=== PATIENT | male | born 1960 | race Caucasian/White ===

== ENCOUNTER → 2017-01-12 | Outpatient (CLI) | payer OTHER ==
--- NOTE | 2017-01-12 19:33 | CT ---
EXAMINATION TYPE: CT chest w con DATE OF EXAM: 01/12/2017 7:10 PM COMPARISON: NONE HISTORY: Mid to left chest pain and shortness of breath x 6-[address] DLP: 207.20 mGycm Automated exposure control for dose reduction was used. CONTRAST: CT scan of the chest is performed with IV Contrast, patient injected with 100 mL of Omnipaque 300. FINDINGS: The lungs are clear of consolidation. There is no pleural effusion. There is mild linear density at t he lung bases. There are no hilar masses. There is no pericardial effusion. There is normal contrast opacification of the pulmonary arteries. I see no filling defect. There is no mediastinal adenopathy. There is no evidence of thoracic aortic aneurysm or dissection. There is a 1.5 cm cyst in the superi or lateral right lobe of the liver. There is no adrenal mass. The bony thorax is intact. IMPRESSION: No active cardiopulmonary disease. Minimal scarring noted at the lung bases.
== END ==
LOC: RADCTMAIN 18:43
PROVIDERS: ATTEND Family Medicine
DX: R07.9 Chest pain, unspecified (principal)
CPT/HCPCS: 71260; Q9967

== ENCOUNTER 2018-06-09 20:40 | Emergency (ER) | payer OTHER ==
--- NOTE | 2018-06-09 21:17 | ED ---
General Adult HPI - General Stated complaint: [facility] Sent/Exposure Time Seen by Provider: 06/09/18 21:16 - History of Present Illness Initial comments: 57-year-old male with past medical history of hypertension who presents to the emergency department today for evaluation of 1 week of generalized malaise, subjective fevers and body aches. Patient reports that this time his is being treated for bacterial meningitis. This was diagnosed by her primary care physician with a physical exam and may be blood work, no lumbar puncture. Patient believes that his is receiving IV penicillin and a couple of pills at home. She was never admitted for this diagnosis. He was told that if he develops any symptoms he should seek evaluation. Patient reports that for the past 5-7 days he's been feeling very fatigued, had some diffuse muscle and joint aches and has been having episodes of heat flashes with sweating. He has not been able to check his temperature home because these episodes last only minutes and then resolved. Patient reports that he is had decreased appetite but has been trying to drink plenty of fluids. He reports a mild headache which resolves when he lays down to sleep. Denies any vision change, hearing change or focal neurologic deficits. Denies any chest pain and reports he's had persistent palpitations and his commonly comments on the fact that his heart feels like it skipping beats. This is unchanged recently. He denies any shortness of breath but does report a nonproductive cough which she attributes to decreasing his cigarette smoking. Patient states that he previously smoked 3 -5 packs of cigarettes per week and is now down to 5 packs of cigarettes per month. He reports he feels like he's been coughing more over the past couple months as he decreases how often he smokes. He denies any productive cough or shortness of breath. Patient denies any abdominal pain, nausea, vomiting or change in bowel or bladder habits. He denies any dysuria, hematuria. He denies any rashes. He does note a bruise on his left elbow but admits that he frequently sits in his bed and props himself up on his left elbow to watch television and the bruises consistent with being in that position. When asked about his rapid heart rate patient states that he has been told he had a rapid heart rate in the past. He has been evaluated and outside hospital states that one point he had a heart rate over 200. He states that he was given a medication that fixed his heart rate with one shot and he never followed up with cardiology. He denies any diagnosis of SVT or A. fib in the past. - Related Data Home Medications Medication Instructions Recorded Confirmed HYDROcodone/APAP 10-325MG [[place] 1 tab PO Q6HR PRN 06/09/18 06/09/18 10-325] Morphine Sulfate ER [Ms Contin] 30 mg PO Q8H 06/09/18 06/09/18 Allergies Allergy/AdvReac Type Severity Reaction Status Date / Time apple Allergy Anaphylaxis Verified 06/09/18 21:18 codeine Allergy Itching Verified 06/09/18 21:18 coconut AdvReac Nausea & Verified 06/09/18 21:18 Vomiting Review of Systems ROS Statement: Those systems with pertinent positive or pertinent negative responses have been documented in the HPI. ROS Other: All systems not noted in ROS Statement are negative. Constitutional: Reports: fever (subjective), chills Eyes: Denies: eye pain, eye discharge, vision change ENT: Denies: ear pain, throat pain, hearing loss Respiratory: Reports: cough. Denies: dyspnea Cardiovascular: Reports: palpitations. Denies: chest pain Endocrine: Reports: fatigue Gastrointestinal: Reports: other (Decreased appetite). Denies: abdominal pain, nausea, vomiting Genitourinary: Denies: urgency, dysuria Musculoskeletal: Reports: back pain Skin: Reports: change in color (Effusion to left elbow). Denies: rash Neurological: Reports: headache, weakness (Generalized). Denies: numbness, paresthesias Psychiatric: Denies: anxiety, depression Hematological/Lymphatic: Denies: easy bleeding, easy bruising General Exam Limitations: no limitations General appearance: alert Head exam: Present: atraumatic, normocephalic Eye exam: Present: PERRL, EOMI ENT exam: Present: normal exam, mucous membranes moist Neck exam: Present: full ROM, other (Noted have a small lesion on the left lateral neck consistent with a bug bite no surrounding cellulitis, no evidence of abscess). Absent: meningismus Respiratory exam: Present: wheezes. Absent: respiratory distress Cardiovascular Exam: Present: tachycardia, irregular rhythm GI/Abdominal exam: Present: soft. Absent: distended Rectal exam: Present: deferred Extremities exam: Present: normal inspection, full ROM, normal capillary refill. Absent: pedal edema Back exam: Present: normal inspection Neurological exam: Present: alert, oriented X3 Psychiatric exam: Present: anxious Skin exam: Present: warm, dry. Absent: rash, petechiae, pallor, mottled Course Vital Signs 06/09/18 06/09/18 06/09/18 21:10 22:20 23:22 Temperature 99.3 F 97.8 F Pulse Rate 112 H 104 H 105 H Respiratory 18 16 18 Rate Blood Pressure 145/81 143/89 160/88 O2 Sat by Pulse 98 96 97 Oximetry 06/10/18 00:55 Temperature 98.2 F Pulse Rate 100 Respiratory 17 Rate Blood Pressure 142/92 O2 Sat by Pulse 98 Oximetry EKG Findings - EKG Comments: EKG Findings:: EKG obtained at 2226, rate is 91, rhythm is sinus, normal axis, normal intervals, no acute ST elevations or depressions. No evidence of acute ischemia or infarction. Medical Decision Making - Medical Decision Making The patient was seen and evaluated, history was obtained from the patient The patient believes that his is being treated for bacterial meningitis at home with potentially IV penicillin and may be some oral antibiotics. We called his who states that she was diagnosed with bacterial meningitis by her primary care doctor who did not perform an LP and ordered home antibiotics. She states she gets antibiotics 1 time daily but doesn't know what she is getting. She was not hospitalized or evaluated in the hospital for this diagnosis. Patient reports he's had one week of generalized fatigue, myalgias and joint pain. In addition he has a long history of palpitations but no known cardiac diagnosis. Patient was noted to be tachycardic on arrival, a full septic and cardiac evaluation was ordered. Patient care was discussed with Dr. Kimbrough who the patient reported was the physician treating his , Dr. Kimbrough is not familiar with this family and is not currently treating his and is not treating any patients for meningitis. Labs with mild leukocytosis no other significant abnormalities. I return to the patient's room to discuss results. Patient states that Dr. Yomaira Jett called his and was upset that we were told that she is being treated for meningitis. He states that it is supposed to be a secret. He states that he was not supposed to give us Dr. Kimbrough's name. At this time i do not believe that his is being treated at home for bacterial meningitis. Considering the durations of the patient's symptoms and his relatively normal workup I have a very low suspicion for meningitis. I did offer the patient a lumbar puncture to evaluate for what could be viral meningitis, however the patient declined stating that feel that is necessary. Patient is afebrile, not tachycardic, my workup as identified no acute infectious source, results were discussed with the patient who expresses relief. All questions pertaining care were answered best my ability the patient was discharged home and advised to follow-up with his primary care physician or return to the ER for any change or worsening. - Lab Data Result diagrams: 06/09/18 22:15 06/09/18 22:15 Lab Results 06/09/18 06/09/18 06/09/18 Range/Units 22:15 22:15 22:15 WBC 5.8 (3.8-10.6) k/uL RBC 4.65 (4.30-5.90) m/uL Hgb 15.1 (13.0-17.5) gm/dL Hct 44.8 (39.0-53.0) % MCV 96.3 (80.0-100.0) fL MCH 32.4 (25.0-35.0) pg MCHC 33.7 (31.0-37.0) g/dL RDW 13.6 (11.5-15.5) % Plt Count 214 (150-450) k/uL Neutrophils % 51 % Lymphocytes % 37 % Monocytes % 6 % Eosinophils % 3 % Basophils % 1 % Neutrophils # 2.9 (1.3-7.7) k/uL Lymphocytes # 2.1 (1.0-4.8) k/uL Monocytes # 0.4 (0-1.0) k/uL Eosinophils # 0.2 (0-0.7) k/uL Basophils # 0.0 (0-0.2) k/uL PT (9.0-12.0) sec INR (<1.2) APTT (22.0-30.0) sec Sodium 139 (137-145) mmol/L Potassium 4.3 (3.5-5.1) mmol/L Chloride 102 (98-107) mmol/L Carbon Dioxide 29 (22-30) mmol/L Anion Gap 8 mmol/L BUN 14 (9-20) mg/dL Creatinine 0.90 (0.66-1.25) mg/dL Est GFR (CKD-EPI)AfAm >90 (>60 ml/min/1.73 sqM) Est GFR (CKD-EPI)NonAf >90 (>60 ml/min/1.73 sqM) Glucose 91 (74-99) mg/dL Plasma Lactic Acid Brenden 1.0 (0.7-2.0) mmol/L Calcium 9.7 (8.4-10.2) mg/dL Magnesium 2.2 (1.6-2.3) mg/dL Total Bilirubin 0.5 (0.2-1.3) mg/dL AST 30 (17-59) U/L ALT 34 (21-72) U/L Alkaline Phosphatase 86 (38-126) U/L Creatine Kinase 55 (55-170) U/L Troponin I (0.000-0.034) ng/mL Total Protein 7.2 (6.3-8.2) g/dL Albumin 4.2 (3.5-5.0) g/dL TSH 0.515 (0.465-4.680) mIU/L Urine Color Urine Appearance (Clear) Urine pH (5.0-8.0) Ur Specific [place] (1.001-1.035) Urine Protein (Negative) Urine Glucose (UA) (Negative) Urine Ketones (Negative) Urine Blood (Negative) Urine Nitrite (Negative) Urine Bilirubin (Negative) Urine Urobilinogen (<2.0) mg/dL Ur Leukocyte Esterase (Negative) 06/09/18 06/09/18 06/09/18 Range/Units 22:15 22:15 23:00 WBC (3.8-10.6) k/uL RBC (4.30-5.90) m/uL Hgb (13.0-17.5) gm/dL Hct (39.0-53.0) % MCV (80.0-100.0) fL MCH (25.0-35.0) pg MCHC (31.0-37.0) g/dL RDW (11.5-15.5) % Plt Count (150-450) k/uL Neutrophils % % Lymphocytes % % Monocytes % % Eosinophils % % Basophils % % Neutrophils # (1.3-7.7) k/uL Lymphocytes # (1.0-4.8) k/uL Monocytes # (0-1.0) k/uL Eosinophils # (0-0.7) k/uL Basophils # (0-0.2) k/uL PT 9.8 (9.0-12.0) sec INR 1.0 (<1.2) APTT 20.9 L (22.0-30.0) sec Sodium (137-145) mmol/L Potassium (3.5-5.1) mmol/L Chloride (98-107) mmol/L Carbon Dioxide (22-30) mmol/L Anion Gap mmol/L BUN (9-20) mg/dL Creatinine (0.66-1.25) mg/dL Est GFR (CKD-EPI)AfAm (>60 ml/min/1.73 sqM) Est GFR (CKD-EPI)NonAf (>60 ml/min/1.73 sqM) Glucose (74-99) mg/dL Plasma Lactic Acid Brenden (0.7-2.0) mmol/L Calcium (8.4-10.2) mg/dL Magnesium (1.6-2.3) mg/dL Total Bilirubin (0.2-1.3) mg/dL AST (17-59) U/L ALT (21-72) U/L Alkaline Phosphatase (38-126) U/L Creatine Kinase (55-170) U/L Troponin I <0.012 (0.000-0.034) ng/mL Total Protein (6.3-8.2) g/dL Albumin (3.5-5.0) g/dL TSH (0.465-4.680) mIU/L Urine Color Yellow Urine Appearance Clear (Clear) Urine pH 5.5 (5.0-8.0) Ur Specific [place] 1.025 (1.001-1.035) Urine Protein Trace H (Negative) Urine Glucose (UA) Negative (Negative) Urine Ketones Negative (Negative) Urine Blood Negative (Negative) Urine Nitrite Negative (Negative) Urine Bilirubin Negative (Negative) Urine Urobilinogen 6.0 (<2.0) mg/dL Ur Leukocyte Esterase Negative (Negative) Disposition Clinical Impression: Fatigue, Myalgia Disposition: HOME SELF-CARE Condition: Good Instructions: Viral Syndrome (ED) Is patient prescribed a controlled substance at d/c from ED?: No Referrals: Oskar Herrera MD [Primary Care Provider] - 1-2 days Time of Disposition: 00:56
[2018-06-09] MEDS: SODIUM CHLORIDE 0.9% 500 ML IV SCH ×3 (22:35→23:30)
[2018-06-09 22:47] LABS: Basophils % (A) 1 %; Eosinophils # (A) 0.2 k/uL (0-0.7); Eosinophils % (A) 3 %; HCT 44.8 % (39.0-53.0); HGB 15.1 gm/dL (13.0-17.5); Lymphocytes # (A) 2.1 k/uL (1.0-4.8); Lymphocytes % (A) 37 %; MCH 32.4 pg (25.0-35.0); MCHC 33.7 g/dL (31.0-37.0); MCV 96.3 fL (80.0-100.0); Mean Platelet Volume 6.7; Monocytes # (A) 0.4 k/uL (0-1.0); Monocytes % (A) 6 %; Neutrophils # (A) 2.9 k/uL (1.3-7.7); Neutrophils % (A) 51 %; Platelet Count 214 k/uL (150-450); RBC 4.65 m/uL (4.30-5.90); RDW 13.6 % (11.5-15.5); WBC 5.8 k/uL (3.8-10.6)
--- NOTE | 2018-06-09 22:53 | XR ---
EXAMINATION TYPE: XR chest 2V DATE OF EXAM: 06/09/2018 COMPARISON: 01/21/2017 HISTORY: Short of breath TECHNIQUE: Frontal and lateral views of the chest are obtained. FINDINGS: Heart and mediastinum are normal. Lungs are clear. Diaphragm is normal. Bony thorax appear s normal. IMPRESSION: Normal chest. No change
[2018-06-09 22:58] LABS: ALT 34 U/L (21-72); AST 30 U/L (17-59); Albumin 4.2 g/dL (3.5-5.0); Alkaline Phosphatase 86 U/L (38-126); Anion Gap 8 mmol/L; Blood Urea Nitrogen 14 mg/dL (9-20); Calcium 9.7 mg/dL (8.4-10.2); Carbon Dioxide 29 mmol/L (22-30); Chloride 102 mmol/L (98-107); Creatine Kinase 55 U/L (55-170); Glucose 91 mg/dL (74-99); Magnesium 2.2 mg/dL (1.6-2.3); Potassium 4.3 mmol/L (3.5-5.1); Sodium 139 mmol/L (137-145); Total Bilirubin 0.5 mg/dL (0.2-1.3); Total Protein 7.2 g/dL (6.3-8.2)
[2018-06-09 23:04] LABS: Prothrombin Time 9.8 sec (9.0-12.0)
[2018-06-09 23:08] LABS: Partial Thromboplastin Time 20.9 sec (22.0-30.0)
[2018-06-09 23:31] LABS: Appearance,Urine Clear (Clear); Bilirubin,Urine Negative (Negative); Blood,Urine Negative (Negative); Color,Urine Yellow; Glucose,Urine (UA) Negative (Negative); Ketones,Urine Negative (Negative); Leukocyte Esterase,Urine Negative (Negative); Nitrite,Urine Negative (Negative); PH, Urine 5.5 (5.0-8.0); Protein,Urine Trace (Negative); Specific Gravity,Urine 1.025 (1.001-1.035)
[2018-06-10] MEDS: SODIUM CHLORIDE 0.9% 500 ML IV SCH
[2018-06-10 00:56] VITALS: BP 142/92; PULSE 100; RESP 17; TEMP 98.2
== END 2018-06-10 01:00 | disposition home or self-care (01) ==
LOC: EC 20:40
DX: S10.96XA Insect bite of unspecified part of neck, initial encounter (principal); R53.83 Other fatigue; M79.1 Myalgia; R50.9 Fever, unspecified; D72.829 Elevated white blood cell count, unspecified; F17.210 Nicotine dependence, cigarettes, uncomplicated; Z79.891 Long term (current) use of opiate analgesic; Z88.5 Allergy status to narcotic agent; Z91.018 Allergy to other foods; W57.XXXA Bitten or stung by nonvenomous insect and other nonvenomous arthropods, initial encounter
CPT/HCPCS: 36415; 71046; 80053; 81003; 82550; 83605; 83735; 84443; 84484; 85025; 85610; 85730; 87040; 87077; 87086; 87186; 93005; 99284

== ENCOUNTER 2018-11-08 14:23 | Emergency (ER) | payer OTHER ==
[2018-11-08 14:27] VITALS: BP 130/77; PULSE 77; RESP 18; TEMP 98.8
--- NOTE | 2018-11-08 14:35 | ED ---
Back Pain HPI - General Chief Complaint: Back Pain/Injury Stated Complaint: back pain Time Seen by Provider: 11/08/18 14:28 Source: patient Limitations: no limitations - History of Present Illness Initial Comments: 57-year-old male presenting today for increasing low back pain 5 days. Patient states that he did have a fall a few weeks ago however he did not notice any increase in low back pain. He states his low back pain increased from his chronic on after he moved a washing machine by himself. He states he did twisting motion and noticed right sided back pain. He states that he does have baseline back pain where he takes MS Contin as well as [place] and is seen by a or speak surgeon at a pain clinic in [facility]. Patient states she was diagnosed with degenerative disc disease as well as bone spurs. Patient states that since moving a dryer he has had increased pain out of his chronic low back pain. Patient denies any fever, chills, history of cancer, history of IV drug use, history of tuberculosis any recent travel, history of loss of bowel or bladder control, urinary retention, decreased sensation or muscle weakness of the lower extremities. Difficult to ambulate in, saddle paresthesias, upper back pain or chest pain, dyspnea or dyspnea on exertion. Patient states he has not had an MRI in over 10 years. He states he was seen at his chiropractor this past Wednesday, who adjusted him but this didnt seemed to help. Negative ROS negative, patient denies any recent chest pain, abdominal pain, nausea or vomiting, numbness or tingling, dysuria or hematuria, constipation or diarrhea, headaches or visual changes, or any other complaints. - Related Data Home Medications Medication Instructions Recorded Confirmed HYDROcodone/APAP 10-325MG [[place] 2 tab PO Q6HR PRN 06/09/18 06/10/18 10-325] Morphine Sulfate ER [Ms Contin] 30 mg PO Q8H 06/09/18 06/10/18 QUEtiapine [SEROquel] 25 - 75 mg PO HS 06/10/18 06/10/18 Venlafaxine HCl [Effexor XR] 75 mg PO BID 06/10/18 06/10/18 Previous Rx's Medication Instructions Recorded Orphenadrine [Norflex] 100 mg PO Q12H 3 Days #6 tablet.er 11/08/18 Allergies Allergy/AdvReac Type Severity Reaction Status Date / Time apple Allergy Anaphylaxis Verified 11/08/18 14:27 codeine Allergy Itching Verified 11/08/18 14:27 coconut AdvReac Nausea & Verified 11/08/18 14:27 Vomiting Review of Systems ROS Statement: Those systems with pertinent positive or pertinent negative responses have been documented in the HPI. ROS Other: All systems not noted in ROS Statement are negative. Past Medical History Past Medical History: Osteoarthritis (OA) Additional Past Medical History / Comment(s): DDD History of Any Multi-Drug Resistant Organisms: None Reported Past Surgical History: Orthopedic Surgery Additional Past Surgical History / Comment(s): RIGHT KNEE LEFT HAND Past Psychological History: No Psychological Hx Reported Smoking Status: Current every day smoker Past Alcohol Use History: None Reported Past Drug Use History: None Reported General Exam - General Exam Comments Initial Comments: General: The patient is awake and alert, in no distress, and does not appear acutely ill. Eye: Pupils are equal, round and reactive to light, extra-ocular movements are intact. No nystagmus. There is normal conjunctiva bilaterally. No signs of icterus. Ears, nose, mouth and throat: There are moist mucous membranes and no oral lesions. Neck: The neck is supple, there is no tenderness or JVD. Cardiovascular: There is a regular rate and rhythm. No murmur, rub or gallop is appreciated. Respiratory: Lungs are clear to auscultation, respirations are non-labored, breath sounds are equal. No wheezes, stridor, rales, or rhonchi. Gastrointestinal: Soft, non-distended, non-tender abdomen without masses or organomegaly noted. There is no rebound or guarding present. No CVA tenderness. Bowel sounds are unremarkable. Musculoskeletal: Normal inspection lumbar spine. Mild midline tenderness to patient lumbar spine, more significant paravertebral tenderness palpation. Patient is able to fully flex extend at the lumbar spine with complaints of pain. Positive straight leg testing right side. Sensation intact of the lower extremities from hip to toes, no saddle anesthesia. +2 or 5 deep tendon reflexes of the patellar and Achilles, no mild closed or fasciculations. No noted atrophy. . DP pulses equal bilaterally 2+. Neurological: A&O x 3. CN II-XII intact, There are no obvious motor or sensory deficits. Coordination appears grossly intact. Speech is normal. Skin: Skin is warm and dry and no rashes or lesions are noted. Psychiatric: Cooperative, appropriate mood & affect, normal judgment. Limitations: no limitations Course Vital Signs 11/08/18 14:25 Temperature 98.8 F Pulse Rate 77 Respiratory 18 Rate Blood Pressure 130/77 O2 Sat by Pulse 99 Oximetry Medical Decision Making - Medical Decision Making No concerning RF. Hx concerning for strain vs herniation. CT revealed no acute findings, there are noted herniations at L5. Findings were discussed with patient. No signs concerning for cauda equina. Patient neurovascularly intact. Patient not requesting pain medication as he has this at home. Patient will be given or surgery follow-up. Patient states he has an appointment scheduled for November 15. At this time given history and physical exam findings of more significant paravertebral tenderness as well as palpable muscle tension I feel patient has low back strain. Patient was given 5 mg by mouth Valium, he'll be discharged with Flexeril, the risk associated with the use of muscle relaxants were discussed at length with patient who verbalized understanding. Return parameters were discussed at length patient who verbalized understanding. Patient is agreeable couple discharge. And going without difficulty. Patient discharged in stable condition appearing well. Case discussed with Dr. Menjivar Disposition Clinical Impression: History of fall within past 90 days, Acute exacerbation of chronic low back pain, Low back strain, Lumbar disc herniation Disposition: HOME SELF-CARE Condition: Good Instructions: Lumbar Disc Herniation (ED), Low Back Strain (ED) Additional Instructions: Please use medication as discussed. Please follow-up with family doctor in the next 2 days, please keep appointment with your pain clinic on 11/15/18. Please return to emergency room if the symptoms increase or worsen or for any other concerns, including loss of bowel bladder control, incontinence, loss sensation of the lower extremities, inability to ambulate or muscle weakness of the lower extremities. Prescriptions: Orphenadrine [Norflex] 100 mg PO Q12H 3 Days #6 tablet.er Is patient prescribed a controlled substance at d/c from ED?: No Referrals: None,Stated [Primary Care Provider] - 1-2 days [facility] [NON-STAFF] - 1-2 days Time of Disposition: 15:35
[2018-11-08] MEDS ORDERED: DIAZEPAM 5 MG TAB PO STA (14:48)
--- NOTE | 2018-11-08 15:11 | CT ---
EXAMINATION TYPE: CT lumbar spine wo con DATE OF EXAM: 11/08/2018 3:04 PM COMPARISON: None. HISTORY: Pain post fall and lifting injury CT DLP: 679.7 mGycm Automated exposure control for dose reduction was used. Unenhanced CT of the lumbar spine was performed. Bone and soft tissue window settings are submitted as well as coronal and sagittal reconstructions. There are 5 lumbar type vertebra identified. Lumbar spine shows satisfactory alignment without eviden ce of acute fracture or dislocation. There is moderate disc space narrowing L4-L5 and L5-S1 levels. D emineralization is present. No large posterior disc herniations are seen on sagittal images. No signi ficant spurring is present. Review of axial images shows the T12-L1, L1-L2, and L2-L3 levels all to appear within normal limits. Axial images at the L3-L4 level show mild/moderate broad disc bulge effacing anterior thecal sac. The re is mild/moderate facet degenerative changes and ligament flavum hypertrophy effacing posterior lat eral thecal sac on axial image 56. There is mild to moderate bilateral left greater than right anteri or inferior neural foraminal narrowing. Axial images at the L4-L5 level show mild facet degenerative changes bilaterally. There is mild broad based posterior disc protrusion minimally effacing anterior thecal sac. There is mild to moderate bi lateral anterior inferior neural foraminal narrowing seen. Axial images at L5-S1 level shows central disc protrusion on axial image 75 effacing anterior thecal sac. Bilateral neural foramina are patent. There is partial visualization of 1.7 cm hypodense lesion right hepatic lobe axial image 1 which jae elates with simple appearing thin-walled cyst on chest CT January 12, 2017. There is mild vascular calc ification of the visualized abdominal aorta. IMPRESSION: No acute fracture or dislocation is seen.
--- NOTE | 2018-11-08 15:24 | XR ---
EXAMINATION TYPE: XR Hip Complete RT DATE OF EXAM: 11/08/2018 CLINICAL HISTORY: Right hip pain for 5 days. TECHNIQUE: AP and frogleg views of the right hip are obtained. COMPARISON: None. FINDINGS: There is no acute fracture/dislocation evident in the right hip. Mild to moderate axial oni int space loss is present. No significant spurring or subchondral cystic changes are seen. The overl tiffany soft tissue appears unremarkable. IMPRESSION: As above.
== END 2018-11-08 16:14 | disposition home or self-care (01) ==
LOC: EC 14:23
DX: S39.012A Strain of muscle, fascia and tendon of lower back, initial encounter (principal); M51.26 Other intervertebral disc displacement, lumbar region; G89.29 Other chronic pain; Z91.81 History of falling; F17.200 Nicotine dependence, unspecified, uncomplicated; Z88.5 Allergy status to narcotic agent; Z91.018 Allergy to other foods; Z79.891 Long term (current) use of opiate analgesic; Z79.899 Other long term (current) drug therapy; Z87.39 Personal history of other diseases of the musculoskeletal system and connective tissue; X50.1XXA Overexertion from prolonged static or awkward postures, initial encounter
CPT/HCPCS: 72131; 73502; 99284

== ENCOUNTER → 2020-03-29 | Outpatient (CLI) | payer OTHER ==
--- NOTE | 2020-03-29 11:47 | XR ---
EXAMINATION TYPE: XR chest 2V DATE OF EXAM: 03/29/2020 COMPARISON: NONE TECHNIQUE: PA and lateral views submitted. HISTORY: Cough FINDINGS: The lungs are clear and there is no pneumothorax, pleural effusion, or focal pneumonia. Biapical pl eural thickening. Hyperinflation noted. No consolidative process. Mild hypertrophic and degenerative change of the spine. Hyperinflation suggests COPD. IMPRESSION: 1. No acute process. Correlate for COPD.
== END | disposition home or self-care (01) ==
LOC: LABWHC1 07:40
PROVIDERS: ATTEND Family Medicine
DX: Z20.828 Contact with and (suspected) exposure to other viral communicable diseases (principal)
CPT/HCPCS: 71046; U0003

== ENCOUNTER → 2020-05-29 | Outpatient (CLI) | payer OTHER | END | disposition home or self-care (01) | LOC: LABWHC1 14:50 | PROVIDERS: ATTEND Nurse Practitioner Family | DX: Z20.9 Contact with and (suspected) exposure to unspecified communicable disease (principal) | CPT/HCPCS: U0003; C9803 ==

== ENCOUNTER 2021-05-29 16:07 | Emergency (ER) | payer OTHER ==
[2021-05-29 16:11] VITALS: RESP 20
[2021-05-29] MEDS ORDERED: KETOROLAC 15 MG/ML 1 ML VIAL IM STA (16:26)
[2021-05-29] MEDS ORDERED: HYDROmorphone 1 MG/ML 1 ML SYRINGE IM STA (16:26)
--- NOTE | 2021-05-29 16:32 | ED ---
Back Pain HPI - General Chief Complaint: Back Pain/Injury Stated Complaint: Back/Knee/Hip Pain Source: patient, RN notes reviewed, old records reviewed Limitations: no limitations - History of Present Illness Initial Comments: 60-year-old white male, alert and oriented 4, presents to the emergency room with complaints of 3 days of low back pain. Patient states he has chronic degenerative disc disease and osteoarthritis. He states he sees a pain management physician Dr. Jarvis who has prescribed him morphine 60 mg and [place] which he has taken and had no relief with. Patient denies any injury. He denies any fevers, saddle anesthesia or incontinence of bowel or bladder. He states he had a hip fracture after falling backward in June 2020. He states that he drove himself to the emergency room today. He is able to ambulate but with pain. Patient does state that he smokes cigarettes. MD Complaint: back pain -: days(s) (3) Similar Symptoms Previously: Yes Place: home Radiation: other (Right hip) Severity scale (1-10): 8 Quality: sharp Consistency: intermittent Improves With: immobilization Worsens With: movement, walking Associated Symptoms: difficulty walking Treatments Prior to Arrival: other (Morphine and [place]) - Related Data Home Medications Medication Instructions Recorded Confirmed HYDROcodone/APAP 10-325MG [[place] 2 tab PO Q6HR PRN 06/09/18 05/29/21 10-325] Carvedilol [Coreg] 3.125 mg PO BID 05/29/21 05/29/21 Cyclobenzaprine [Flexeril] 10 mg PO Q8H PRN 05/29/21 05/29/21 Morphine Sulfate ER [Ms Contin] 60 mg PO Q12HR 05/29/21 05/29/21 PARoxetine HCL [Paxil Cr] 37.5 mg PO DAILY 05/29/21 05/29/21 Propafenone HCl 300 mg PO BID 05/29/21 05/29/21 Previous Rx's Medication Instructions Recorded Docusate [Colace] 100 mg PO DAILY 30 Days #30 capsule 05/29/21 Allergies Allergy/AdvReac Type Severity Reaction Status Date / Time apple Allergy Anaphylaxis Verified 05/29/21 17:42 codeine Allergy Itching Verified 05/29/21 17:42 coconut AdvReac Nausea & Verified 05/29/21 17:42 Vomiting Review of Systems ROS Statement: Those systems with pertinent positive or pertinent negative responses have been documented in the HPI. ROS Other: All systems not noted in ROS Statement are negative. Past Medical History Past Medical History: Atrial Fibrillation, Osteoarthritis (OA) Additional Past Medical History / Comment(s): DDD History of Any Multi-Drug Resistant Organisms: None Reported Past Surgical History: Orthopedic Surgery Additional Past Surgical History / Comment(s): RIGHT KNEE LEFT HAND Past Psychological History: No Psychological Hx Reported Smoking Status: Current every day smoker Past Alcohol Use History: None Reported Past Drug Use History: None Reported General Exam Limitations: no limitations General appearance: alert, in no apparent distress Head exam: Present: atraumatic, normocephalic, normal inspection Eye exam: Present: normal appearance, PERRL, EOMI. Absent: scleral icterus, conjunctival injection, periorbital swelling Pupils: Present: normal accommodation ENT exam: Present: normal exam, normal oropharynx, mucous membranes moist Neck exam: Present: normal inspection, full ROM. Absent: tenderness, meningismus, lymphadenopathy, thyromegaly Respiratory exam: Present: normal lung sounds bilaterally. Absent: respiratory distress, wheezes, rales, rhonchi, stridor, chest wall tenderness, accessory muscle use, decreased breath sounds, prolonged expiratory Cardiovascular Exam: Present: normal rhythm, tachycardia, normal heart sounds. Absent: systolic murmur, diastolic murmur, rubs, gallop, clicks GI/Abdominal exam: Present: soft, normal bowel sounds. Absent: distended, tenderness, guarding, rebound, rigid Extremities exam: Present: normal inspection, full ROM, normal capillary refill. Absent: tenderness, pedal edema, joint swelling, calf tenderness Back exam: Present: normal inspection, full ROM, vertebral tenderness (Lumbar sacral). Absent: CVA tenderness (R), CVA tenderness (L), muscle spasm, paraspinal tenderness, rash noted Expanded Back exam: Absent: saddle anesthesia Back exam: Negative Straight Leg Raising: Left, Right Neurological exam: Present: alert, oriented X3, CN II-XII intact Psychiatric exam: Present: normal affect, normal mood Skin exam: Present: warm, dry, intact, normal color. Absent: rash Course Vital Signs 05/29/21 05/29/21 05/29/21 16:08 16:53 18:32 Temperature 97.5 F L 98.1 F Pulse Rate 124 H 98 99 Respiratory 20 20 20 Rate Blood Pressure 115/69 106/72 113/77 O2 Sat by Pulse 97 96 94 L Oximetry Medical Decision Making - Medical Decision Making Patient is able to ambulate and denies any saddle anesthesia or bowel or bladder incontinence. He denies any fevers, trauma, hematochezia, hematemesis or dysuria. X-ray shows a large amount of stool in the colon which may be the cause of the patient's pain in addition to his chronic back pain and foraminal narrowing at L4-L5 and L5-S1. Patient was given an enema in the emergency room. Patient did get some relief with Dilaudid and Toradol. He'll be instructed to follow-up with his pain management doctor. Case discussed with Dr. Paris. Disposition Clinical Impression: Chronic back pain, Constipation Disposition: HOME SELF-CARE Condition: Fair Instructions (If sedation given, give patient instructions): Constipation (ED), Chronic Back Pain (DC) Additional Instructions: Continue your prescribed home pain medications. Follow up with her doctor within the next week. Return to the emergency room any incontinence of bowel or bladder. Increasing pain or fevers. Prescriptions: Docusate [Colace] 100 mg PO DAILY 30 Days #30 capsule Is patient prescribed a controlled substance at d/c from ED?: No Referrals: Felix Jarvis DO [Primary Care Provider] - 1-2 days Time of Disposition: 18:45
--- NOTE | 2021-05-29 18:05 | XR ---
EXAMINATION TYPE: XR lumbosacral spine min 4V DATE OF EXAM: 05/29/2021 COMPARISON: NONE HISTORY: 60 years Male. STUDY INDICATION GIVEN: Neck pain TECHNIQUE: 5 radiographs of the lumbar spine. FINDINGS AND IMPRESSION: Generalized osteopenia. Vertebral body heights are normal. Posterior elements are acutely intact. No acute osseous abnormalit y. Moderate narrowing at L4-5 and severe narrowing at L5-S1. Bilateral neural foraminal narrowing at L4- 5 and L5-S1. Tiny ventral and dorsal bony spurs noted in the lumbar spine. Included abdomen and pelvis demonstrate large amount of stool in the colon. Calcifications project over the expected location of the aorta and may represent atherosclerosis.
[2021-05-29] MEDS ORDERED: NA PHOS,M-B/NA PHOS,DI-BA 133 ML ENEMA RECTAL STA (18:08)
[2021-05-29 18:34] VITALS: BP 113/77; PULSE 99; TEMP 98.1
== END 2021-05-29 19:25 | disposition home or self-care (01) ==
LOC: EC 16:07
DX: G89.29 Other chronic pain (principal); M54.5 Low back pain; K59.00 Constipation, unspecified; I48.91 Unspecified atrial fibrillation; M19.90 Unspecified osteoarthritis, unspecified site; F17.200 Nicotine dependence, unspecified, uncomplicated; Z79.891 Long term (current) use of opiate analgesic; Z79.899 Other long term (current) drug therapy; Z88.5 Allergy status to narcotic agent
CPT/HCPCS: 72110; 96372 ×2; 99283; J1170; J1885

== ENCOUNTER 2021-07-26 13:27 | Emergency (ER) | payer OTHER ==
--- NOTE | 2021-07-26 14:44 | ED ---
Back Pain HPI - General Chief Complaint: Back Pain/Injury Stated Complaint: severe back pain Time Seen by Provider: 07/26/21 13:50 Source: patient Limitations: physical limitation - History of Present Illness Initial Comments: 60 year-old male patient presents to the emergency department for evaluation of left low back pain. Patient states it started yesterday when trying to move a chair outside. States he went to push the chair and felt a "snap" in his left low back. States the pain has been constant since the injury. He denies any pain radiation down the legs. Denies any numbness or tingling or saddle anesthesia. Denies loss of bowel or bladder control. Denies fever or chills, abdominal pain, nausea, or vomiting. He does take morphine at home for pain, has [place] as well. Patient is requesting computed tomography scan to the has known history of herniated disks. Patient denies any recent rash, cough, shortness of breath, chest pain, diarrhea, constipation, dizziness, hematuria, dysuria, urinary urgency, urinary frequency, headache, visual changes, or any other complaints. - Related Data Home Medications Medication Instructions Recorded Confirmed HYDROcodone/APAP 10-325MG [[place] 2 tab PO Q6HR PRN 06/09/18 05/29/21 10-325] Carvedilol [Coreg] 3.125 mg PO BID 05/29/21 05/29/21 Cyclobenzaprine [Flexeril] 10 mg PO Q8H PRN 05/29/21 05/29/21 Morphine Sulfate ER [Ms Contin] 60 mg PO Q12HR 05/29/21 05/29/21 PARoxetine HCL [Paxil Cr] 37.5 mg PO DAILY 05/29/21 05/29/21 Propafenone HCl 300 mg PO BID 05/29/21 05/29/21 Previous Rx's Medication Instructions Recorded Docusate [Colace] 100 mg PO DAILY 30 Days #30 capsule 05/29/21 Allergies Allergy/AdvReac Type Severity Reaction Status Date / Time apple Allergy Anaphylaxis Verified 07/26/21 13:49 codeine Allergy Itching Verified 07/26/21 13:49 coconut AdvReac Nausea & Verified 07/26/21 13:49 Vomiting Review of Systems ROS Statement: Those systems with pertinent positive or pertinent negative responses have been documented in the HPI. ROS Other: All systems not noted in ROS Statement are negative. Past Medical History Past Medical History: Atrial Fibrillation, Osteoarthritis (OA) Additional Past Medical History / Comment(s): DDD History of Any Multi-Drug Resistant Organisms: None Reported Past Surgical History: Orthopedic Surgery Additional Past Surgical History / Comment(s): RIGHT KNEE LEFT HAND Past Psychological History: No Psychological Hx Reported Smoking Status: Current every day smoker Past Alcohol Use History: None Reported Past Drug Use History: None Reported General Exam Limitations: physical limitation General appearance: alert, in no apparent distress, other (This is a well- developed, well-nourished adult male patient in no acute distress. Vital signs upon presentation are temperature 98.6F, pulse 61, respirations 18, blood pressure 97/60, pulse ox 98% on room air.) ENT exam: Present: normal exam, mucous membranes moist Neck exam: Present: normal inspection. Absent: tenderness, meningismus, lymphadenopathy Respiratory exam: Present: normal lung sounds bilaterally. Absent: respiratory distress, wheezes, rales, rhonchi, stridor Cardiovascular Exam: Present: regular rate, normal rhythm, normal heart sounds. Absent: systolic murmur, diastolic murmur, rubs, gallop, clicks GI/Abdominal exam: Present: soft, normal bowel sounds. Absent: distended, tenderness, guarding, rebound, rigid Extremities exam: Present: normal inspection, full ROM, normal capillary refill, other (Skin to the lower extremities is pink, warm, dry. Cap refill less than 3 seconds. Pedal and posttibial pulses 2+.). Absent: tenderness, pedal edema, joint swelling, calf tenderness Back exam: Present: normal inspection. Absent: paraspinal tenderness, vertebral tenderness Neurological exam: Present: alert, oriented X3, CN II-XII intact, other (Strength in the lower extremities is 5/5.) Psychiatric exam: Present: normal affect, normal mood Skin exam: Present: warm, dry, intact, normal color. Absent: rash Course Vital Signs 07/26/21 07/26/21 13:46 15:45 Temperature 98.6 F 98.2 F Pulse Rate 61 78 Respiratory 18 16 Rate Blood Pressure 97/60 138/78 O2 Sat by Pulse 98 98 Oximetry Medical Decision Making - Medical Decision Making 60 year-old male patient presents to the emergency department for evaluation of acute low back pain that started yesterday while trying to move a chair. Physical examination is unremarkable. He is neurologically intact with no focal deficits. No concerning symptoms for cauda equina. Patient requested multiple times have a computed tomography scan. CT lumbar spine was obtained and showed to acute compression fractures of lumbar spine. Did discuss findings and results with the patient. He'll be discharged follow up with his primary care physician and pediatric clinical nurse specialist for further evaluation. He does have pain medication at home. Return parameters were discussed in detail. He verbalizes understanding and agrees with this plan. Case discussed with my attending Dr. Arroyo. - Radiology Data Radiology results: report reviewed, image reviewed CT lumbar spine without contrast was obtained. Report was reviewed in its entirety. Impression by Dr. Horowitz shows multiple osteoporotic type compression fractures. L2 fracture is unchanged. Fracture L3 and L1 are new compared to old exam. These fractures could be relatively acute. Disposition Clinical Impression: Lumbar compression fracture Disposition: HOME SELF-CARE Condition: Good Instructions (If sedation given, give patient instructions): Vertebral C ompression Fracture (ED) Additional Instructions: Continue home medication for pain. Follow up with channel specialist for further evaluation as soon as possible. Return to the emergency department for any new, worsening, or concerning symptoms. Is patient prescribed a controlled substance at d/c from ED?: No Referrals: Gary Moreno DO [Doctor of Osteopathic Medicine] - 1-2 days Time of Disposition: 15:02
--- NOTE | 2021-07-26 14:58 | CT ---
EXAMINATION TYPE: CT lumbar spine wo con DATE OF EXAM: 07/26/2021 COMPARISON: 11/08/2018 HISTORY: Acute low back pain; history of herniated disc CT DLP: 791.4 mGycm Automated exposure control for dose reduction was used. Images obtained from the level of T12-S3 vertebra without contrast. Vertebra have normal alignment. There is narrowing at L4-5 and L5-S1 disc spaces. There is some depre ssion of the inferior endplate of L3 vertebra with 10% loss of height. There is similar change at L2 vertebra on the inferior endplate. There is depression of the superior endplate of L1 vertebra with 1 5% loss of height. The posterior elements appear intact. There is no lumbar paraspinal mass. The sacr oiliac joints are intact. There is osteopenia. IMPRESSION: Multiple osteoporotic type compression fractures. L2 fracture is unchanged. Fracture L3 and L1 are ne w compared to old exam. These fractures could be relatively acute.
[2021-07-26 15:46] VITALS: BP 138/78; PULSE 78; RESP 16; TEMP 98.2
== END 2021-07-26 15:45 | disposition home or self-care (01) ==
LOC: EC 13:27
DX: S32.030A Wedge compression fracture of third lumbar vertebra, initial encounter for closed fracture (principal); S32.010A Wedge compression fracture of first lumbar vertebra, initial encounter for closed fracture; I48.91 Unspecified atrial fibrillation; M19.90 Unspecified osteoarthritis, unspecified site; F17.200 Nicotine dependence, unspecified, uncomplicated; Z79.899 Other long term (current) drug therapy; X50.1XXA Overexertion from prolonged static or awkward postures, initial encounter
CPT/HCPCS: 72131; 99283

== ENCOUNTER → 2021-09-11 | Outpatient (CLI) | payer OTHER ==
--- NOTE | 2021-09-11 18:15 | CONS ---
CONSULTATION DATE OF SERVICE: 09/11/2021 This 60-year-old gentleman has been [facility]evaluated in [facility] for obstructive sleep apnea-hypopnea syndrome. HISTORY OF PRESENT ILLNESS/SLEEP-WAKE EVALUATION: I saw this patient in 2014. At that time he was diagnosed with obstructive sleep apnea and was started on treatment with CPAP but had difficulties with CPAP. He did not use CPAP equipment since that time. At the present time his sleep schedule is from 11 or 12 midnight until 9 or 10 a.m. He does have problems with falling asleep, has TV set in bedroom. He usually sleeps on the side position. He wakes up from sleep every 1-1/2 hours with one episode of nocturia at night. He has loud snoring and episodes of stopped breathing during sleep. Positive history of sweating, palpitations. In the morning the patient wakes up tired, has episodes of irritability and depression. [place] Sleepiness Scale is 4. He may take one nap around 1 or 2 p.m. No vivid dreams during naps. No hypnagogic hallucinations, sleep paralysis or cataplexy. PAST MEDICAL HISTORY: Positive for back problems, depression. Patient recently developed atrial fibrillation, preparing for cardiac ablation. PAST SURGICAL HISTORY: Right knee surgery. MEDICATIONS: 1. [place] Contin twice a day. 2. [place] twice a day as needed. 3. Flexeril. 4. Valium. SOCIAL HISTORY: Positive for smoking 4 or 5 cigarettes a day for about 45 years. REVIEW OF SYSTEMS: Snoring, episodes of stopped breathing, multiple awakenings from sleep. No fevers. No double vision. No recent chest pain. No shortness of breath. No abdominal pain. No bleeding episodes. No blood in the urine. No seizure episodes. PHYSICAL EXAMINATION: GENERAL: Pleasant gentleman without distress. VITAL SIGNS: BP 104/71, HR 83, RR 15, height 5 feet 11 inches, weight 177.6, temperature 97.5, oxygen saturation at room air 94%. Body mass index 24.6. HEENT: PERRLA, EOMI, evaluation of oropharynx showed tongue protrudes midline. Low position of soft palate. NECK: Supple, no JVD. Thyroid is not palpable. Neck is 16 inches in circumference. LUNGS: Clear to percussion and to auscultation. Good air exchange. No wheezing or rhonchi. HEART: S1, S2 irregular. ABDOMEN: Soft and nontender. Bowel sounds are present. No organomegaly appreciated. EXTREMITIES: No clubbing or cyanosis. 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 Cranial nerves 2 to 7 intact. There is no fasciculation or atrophy. noted. No focal deficits observed. IMPRESSION: 1. Snoring, history of obstructive sleep apnea in the past (at that time apnea- hypopnea index was 18.9), multiple awakenings from sleep, low position of soft palate; obstructive sleep apnea-hypopnea syndrome. 2. Recently developed atrial fibrillation, preparing for cardiac ablation. 3. History of depression. 4. Back problems. 5. On treatment with opioids, which may increase risk for central sleep apnea. 6. Status post right knee arthroscopic surgery many years ago. PLAN: 1. Polysomnography for evaluation of patient's breathing during sleep. 2. CPAP/BiPAP titration if sleep study confirms obstructive sleep apnea-hypopnea syndrome. 3. Preferable position during sleep on the side. 4. No driving if patient feels any sleepiness. 5. I will see patient for follow up visit to explain results of testing and following plan. Thank you very much for referring this patient for reevaluation. Sincerely, Abhilash Valentine MD, PhD, FAASM Diplomat of [place] [employer] Sleep Medicine Board of [place] [employer] Supervisor of [place] [facility] Tichnor BIJAL / EZEKIEL: [id number] /
== END ==
LOC: SLEEP 15:18
PROVIDERS: ATTEND Internal Medicine
DX: G47.33 Obstructive sleep apnea (adult) (pediatric) (principal); I48.91 Unspecified atrial fibrillation; M53.80 Other specified dorsopathies, site unspecified; F32.A Depression, unspecified; F17.200 Nicotine dependence, unspecified, uncomplicated; Z79.891 Long term (current) use of opiate analgesic; Z98.890 Other specified postprocedural states; Z88.5 Allergy status to narcotic agent; Z91.018 Allergy to other foods
CPT/HCPCS: 99211